=== PATIENT | male | born 1995 | race Caucasian/White ===

== ENCOUNTER → 2017-01-27 | Day surgery (SDC) | payer OTHER ==
[~2017-01-27] VITALS: Ht 188 cm; Wt 114.0 kg
[~2017-01-27] MED LIST: *HYDROmorphone PF 1 MG VIAL PERIprocedural Use ONLY ONE; *ONDANSETRON 4 MG VIAL PERIprocedural Use ONLY ONE; *morphine SULFATE 8 MG/ML PERIprocedure ONLY ONE; ACETAMINOPHEN/HYDROcodone 325 MG/7.5 MG TAB PO PRN; BUPIVACAINE/EPINEPHRINE 0.25% 50 ML VIAL ONE; CHLORHEXIDINE GLUCONATE 4% SOLN 120 ML BTL TOP SCH; DEXAMETHASONE SOD PHOS 4 MG/ML VIAL ONE; DO NOT ADM ANY ANTICOAGULANT DRUGS XX PRN; GENTAMICIN SULFATE 80 MG/2 ML VIAL ONE; HYDR-3534 PO; INSULIN HUMAN REGULAR 1,000 UNITS/10 ML VIAL SQ PRN; LACTATED RINGER'S 1000 ML INJ 1,000 ML IV ONE; LACTATED RINGER'S 1000 ML IV SCH; METOPROLOL TARTRATE 25 MG TAB PO PRN; MIDAZOLAM HCL 2 MG/2 ML VIAL ONE; NEOSTIGMINE 3 MG/3 ML SYR IV ONE; ONDANSETRON HCL 4 MG/2 ML VIAL IV PUSH ONE; PHENYLEPH/NS 1000 MCG/10 ML SYR IV ONE; POVIDONE IODINE 7.5% SCRUB 118 ML BOTTLE TOP SCH; PROPOFOL 200 MG/20 ML AMP IV ONE; SODIUM CHLORID 0.9% 500 ML IV SCH; ceFAZolin 1,000 MG/NS 100 ML IV SCH; ceFAZolin 2 GM PREMIX 50 ML ONE; fentaNYL CITRATE 250 MCG/5 ML AMP ONE
[2017-01-27 11:09] VITALS: BP 138/69; PULSE 63; RESP 18; TEMP 98.1; O2SAT 100
[2017-01-27 16:15] VITALS: BP 122/59; PULSE 81; RESP 16; TEMP 98.6; O2SAT 99
--- NOTE | 2017-01-27 16:55 | RADRPT ---
EXAM DATE/TIME: 01/27/2017 13:48 [place] COMPARISON: No previous studies available for comparison. INDICATIONS : Needle location. L4-L5 laminectomy. MEDICAL HISTORY : None. SURGICAL HISTORY : None. ENCOUNTER: Initial ACUITY: 1 day PAIN SCORE: Non-responsive. LOCATION: lumbar. FINDINGS: A single lateral view of the lumbar spine was performed. Limited intraoperative OEC spot image shows a metallic marker and retractor posterior to the L4-5 disc interspace. CONCLUSION: Metallic marker posterior to the L4-5 disc interspace. Dominic Larkin MD on January 27, 2017 at 16:53 Board Certified Radiologist. This report was verified electronically.
--- NOTE | 2017-01-28 12:06 | MP ---
cc: LOIS VALDIVIA DATE OF SURGERY: 01/27/2017 PREOPERATIVE DIAGNOSIS: 1. L4-5 herniated nucleus pulposus 2. Bilateral lumbar radiculitis, bilateral lower extremity weakness. POSTOPERATIVE DIAGNOSIS 1. L4-L5, herniated nucleus pulposus. 2. Bilateral lumbar radiculitis, bilateral lower extremity weakness. PROCEDURE: L4-5 bilateral hemilaminectomy, decompression nerve root, foraminotomy, partial facetectomy; L4-5 diskectomy. SURGEON Lara Valdivia MD BELT LOOP MACHINE OPERATOR: KO Klein SPECIMENS None. ESTIMATED BLOOD LOSS: Minimum. COMPLICATIONS: None. ANESTHESIA: General endotracheal anesthesia. DRAINS: None. CONDITION: The condition is stable. PLAN OF ACTIVITY: Activity as per orders. PROCEDURE My social services assistant KO Vergara was present for the entire surgical case. She was medically necessary for entire case because of the complexity case and to facilitate the performance of the procedure. The SPANISH TRANSLATOR at back table not a skill set for this case to manipulate the instruments e.g. multiple different soft retractors, trial implants and also permanent implants. The patient was brought operating room and had satisfactory general endotracheal anesthesia by the Department of Anesthesia. The patient was carefully transferred onto the [facility] spinal frame. Lumbosacral spine was prepped and draped in usual sterile manner. Localizing x-ray used to identify the L4-5 interspace. Local anesthesia was used operative site. Small incision made over L4-5. Dissection carried through considerable amount of adipose tissue down to the underlying fascia. The paraspinal muscle gently opened bilaterally L4-5. Hemilaminectomy performed bilaterally. The ligamentum flavum was removed. Foraminotomy was performed on the left side. The nerve root was gently retracted medially. Patient found to have a moderate-sized herniated nucleus pulposus. All bleeders coagulated. Approximately 1-2 cc of the Surgifoam's was also used to help prevent any kind of bleeding from the epidural veins. The wound was irrigated with copious amounts of sterile saline the wound itself was dry. There is no evidence of any cerebrospinal fluid leaks. The wound was closed in multiple layers. The fascia was closed with a #2 Tycron suture. The subcutaneous layers with 0 Vicryl and 2-0 Vicryl. Skin approximated with running subcuticular 3-0 Vicryl. Sterile dressings were applied. The patient tolerated the procedure well arrived to the Recovery Room in stable and satisfactory condition. MD ACRRILLO Coles/antonio /2:25 PM /11:56 AM
== END | disposition home or self-care (01) ==
LOC: HSDC 10:25 → EDSTATUS 12:30
PROVIDERS: ATTEND Orthopaedic Surgery Orthopaedic Surgery of the Spine
DX: M51.16 Intervertebral disc disorders with radiculopathy, lumbar region (principal)
CPT/HCPCS: 00630; 63030; 72020; 76000; J0690; J1100; J1170; J1580; J2250; J2270; J2370; J2405; J2710; J3010; J7120